=== PATIENT | male | born 1995 | race Caucasian/White ===

== ENCOUNTER 2017-01-22 13:06 | Emergency (ER) | payer OTHER ==
[2017-01-22 13:16] VITALS: BP 118/80
--- NOTE | 2017-01-22 14:05 | ED Physician Documentation ---
PD HPI HEAD INJURY - Stated complaint Stated Complaint: HEAD LAC - Chief complaint Chief Complaint: Laceration - History obtained from History obtained from: Patient - History of Present Illness Mechanism of head injury: Blow Where head injury occurred: Work Timing - onset: How many hours ago (1-2 hours ago) Location of injury: Right, Back Quality of pain: No: Pain Associated symptoms: No: LOC, AMS, Seizures Review of Systems Constitutional: denies: Fever Eyes: denies: Loss of vision, Decreased vision Ears: denies: Ear pain GI: denies: Nausea, Vomiting Skin: reports: Lesions, Laceration (s) Musculoskeletal: denies: Neck pain, Back pain, Extremity pain, Joint pain Neurologic: reports: Head injury. denies: Generalized weakness, Focal weakness , Syncope, Seizure, Altered mental status, Headache, LOC PD PAST MEDICAL HISTORY - Past Medical History Past Medical History: No - Past Surgical History Past Surgical History: Yes - Present Medications Home Medications: Ambulatory Orders Medication Instructions Recorded Confirmed diphenhydrAMINE [Benadryl] 25 mg PO ONCE 01/22/17 01/22/17 - Allergies Allergies/Adverse Reactions: Allergies Allergy/AdvReac Type Severity Reaction Status Date / Time No Known Drug Allergies Allergy Verified 01/22/17 13:16 - Social History Does the pt smoke?: Yes Smoking Status: Current some day smoker Does the pt drink ETOH?: Yes ETOH Use: Wine, Beer, Liquor Does the pt have substance abuse?: No - Immunizations Immunizations are current?: Yes - POLST Patient has POLST: No PD ED PE NORMAL - Vitals Vital signs reviewed: Yes - General General: Alert and oriented X 3 - HEENT HEENT: PERRL, EOMI. No: Atraumatic (3 cm laceration to the posterior parietal region of the scalp. No active bleeding, no FB ) - Derm Derm: Normal color, Other (Scalp laceration ) - Extremities Extremities: No deformity - Neuro Neuro: Alert and oriented X 3, No motor deficit, No sensory deficit, Normal speech Eye Opening: Spontaneous Motor: Obeys Commands Verbal: Oriented GCS Score: 15 - Psych Psych: Normal mood Results - Vitals Vitals: Vital Signs - 24 hr 01/22/17 13:14 Temperature 36.5 C Heart Rate 72 Respiratory 16 Rate Blood Pressure 118/80 O2 Saturation 99 Oxygen O2 Source Room air Procedures - Laceration (location) scalp Wound type: Linear, Superficial, Clean Neurovascular status: Sensory intact Wound Preparation: Irrigated copiously NS Skin layer closure: [place] (3 mahsa) Other: Patient tolerated well, No complications Complexity: Simple PD MEDICAL DECISION MAKING - ED course Complexity details: d/w patient ED course: Pt hit in head by aircraft engine door. No LOC. has a superficial 3cm laceration that was closed with 3 mahsa. Pt instructed to have the mahsa removed in 10 days. he was given care instructions. Departure - Departure Disposition: 01 Home, Self Care Clinical Impression: Laceration Laceration of scalp Qualifiers: Encounter type: initial encounter Qualified Code(s): S01.01XA - Laceration without foreign body of scalp, initial encounter Condition: Good Instructions: ED Laceration Repair Infec Follow-Up: Primary,care provider [Other] Comments: have the mahsa removed in 10 days
== END 2017-01-22 14:17 | disposition home or self-care (01) ==
LOC: ED 13:06
DX: S01.01XA Laceration without foreign body of scalp, initial encounter (principal); W22.8XXA Striking against or struck by other objects, initial encounter; Y93.89 Activity, other specified; Y99.0 Civilian activity done for income or pay; F17.200 Nicotine dependence, unspecified, uncomplicated
CPT/HCPCS: 12002; 99283

== ENCOUNTER 2018-08-21 22:44 | Emergency (ER) | payer OTHER ==
[2018-08-21 23:10] LABS: BILIRUBIN,URINE NEGATIVE (NEGATIVE); GLUCOSE, URINE (UA) NEGATIVE (NEGATIVE); KETONES,URINE (UA) NEGATIVE (NEGATIVE); LEUKOCYTE ESTERASE, URINE NEGATIVE (NEGATIVE); NITRITE,URINE NEGATIVE (NEGATIVE); OCCULT BLOOD,URINE TRACE-INTA (NEGATIVE); PROTEIN,URINE NEGATIVE (NEGATIVE); UROBILINOGEN,URINE 0.2 (NORMAL) E.U./dL (NORMAL)
[2018-08-21 23:13] LABS: CLARITY,URINE CLEAR (CLEAR)
--- NOTE | 2018-08-22 01:29 | ED Physician Documentation ---
PD HPI MALE - Stated complaint Stated Complaint: MALE - Chief complaint Chief Complaint: General - History obtained from History obtained from: Patient - History of Present Illness Timing - onset: How many days ago (3) Timing - details: Gradual onset Pain level now: 0 Associated symptoms: Testiclar pain (resolved). No: Dysuria, Urinary frequency, Discharge, Genital sore / lesion, Scrotal swelling PD HPI MALE CONTRIB FACTORS: Sexually active. No: Homosexual Similar symptoms before: Has not had sx before Recently seen: Not recently seen - Additional information Additional information: three days ago while having intercourse with female he wasnt familiar with until meeting her recently, condom broke. he has had mild, burning discomfort at tip of penis since then, intermittently and unrelated to urinating. testicle hurt for approximately 1 hour while working out yesterday but resolved. denies h/o STD Review of Systems Constitutional: reports: Reviewed and negative : reports: Testicular pain. denies: Dysuria, Frequency, Discharge Skin: denies: Rash, Lesions PD PAST MEDICAL HISTORY - Past Medical History Past Medical History: No - Past Surgical History Past Surgical History: Yes - Present Medications Home Medications: Ambulatory Orders Medication Instructions Recorded Confirmed diphenhydrAMINE [Benadryl] 25 mg PO ONCE 01/22/17 01/22/17 - Allergies Allergies/Adverse Reactions: Allergies Allergy/AdvReac Type Severity Reaction Status Date / Time No Known Drug Allergies Allergy Verified 08/21/18 22:53 - Social History Does the pt smoke?: Yes Smoking Status: Current every day smoker Does the pt drink ETOH?: Yes Does the pt have substance abuse?: No - Immunizations Immunizations are current?: Yes - POLST Patient has POLST: No PD ED PE NORMAL - Vitals Vital signs reviewed: Yes - General General: Alert and oriented X 3, No acute distress, Well developed/nourished - Abdomen Abdomen: Soft, Non tender - Back Back: No CVA TTP PD ED PE EXPANDED - Male Male : Normal Exam, Testes descended gelacio. No: Circumcised, Skin lesions, Discharge Results - Vitals Vitals: Oxygen O2 Source Room air - Labs Labs: Laboratory Tests 08/21/18 08/21/18 22:05 23:05 Urine Color YELLOW Urine Clarity CLEAR Urine pH 6.0 Ur Specific [place] <=1.005 Urine Protein NEGATIVE Urine Glucose (UA) NEGATIVE Urine Ketones NEGATIVE Urine Occult Blood TRACE-INTA Urine Nitrite NEGATIVE Urine Bilirubin NEGATIVE Urine Urobilinogen 0.2 (NORMAL) Ur Leukocyte Esterase NEGATIVE Ur Microscopic Review NOT INDICATED Urine Culture Comments NOT INDICATED Chlam trachomat DNA PCR NEGATIVE N.gonorrhoeae DNA (PCR) NEGATIVE T. vaginalis (PCR) NEGATIVE PD MEDICAL DECISION MAKING - ED course Complexity details: considered differential, d/w patient Departure - Departure Disposition: 01 Home, Self Care Clinical Impression: Screen for STD (sexually transmitted disease) Condition: Good Instructions: ED Chlamydia GC Poss Culture Pend Discharge Date/Time: 08/22/18 02:27
[2018-08-22] MEDS ORDERED: AZITHROMYCIN 250 MG TABLET PO STA (01:45)
[2018-08-22] MEDS ORDERED: LIDOCAINE 1% 2 ML VIAL MC ONE (01:45)
[2018-08-22] MEDS ORDERED: cefTRIAXone 250 MG VIAL IM STA (01:45)
[2018-08-22 02:13] VITALS: BP 119/85
[2018-08-22 21:25] LABS: TRICHOMONAS VAGINALIS DNA NEGATIVE (NEGATIVE)
== END 2018-08-22 02:27 | disposition home or self-care (01) ==
LOC: ED 22:44
DX: N48.89 Other specified disorders of penis (principal); Z20.2 Contact with and (suspected) exposure to infections with a predominantly sexual mode of transmission; F17.200 Nicotine dependence, unspecified, uncomplicated
CPT/HCPCS: 81003; 87491; 87591; 87661; 96372; 99282; 99283; A9270; 81001; 87086